=== PATIENT | male | born 2005 | race African-American/Black ===

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

== ENCOUNTER 2024-01-01 21:12 | Emergency (ER) | payer OTHER ==
[2024-01-01 21:26] VITALS: RESP 18; BMI 43.9
[2024-01-01] MEDS ORDERED: ACETAMINOPHEN INJECTION 100 ML IVPB ONE (22:02)
[2024-01-01] MEDS ORDERED: levETIRAcetam 500 MG/5 ML INJECTION VIAL IVPB ONE (22:02)
[2024-01-01 22:05] LABS: BASO % 0.5 % (0-2.0); EOS % 1.5 % (0-4.5); HEMATOCRIT 45.8 % (35.4-49); LYMPH % 17.8 % (8-40); MCH 26.1 pg (25.7-33.7); MCHC 32.7 g/dl (32.0-35.9); MEAN CELL VOLUME 79.8 fl (80-96); MEAN PLT VOLUME 7.8 fl (7.5-11.1); MONO % 5.2 % (3.8-10.2); PLATELET COUNT 189 10^3/uL (134-434); RBC 5.74 M/mm3 (4.00-5.60); RDW 15.3 % (11.9-15.9); WHITE BLOOD COUNT 7.1 K/mm3 (4.0-10.0)
[2024-01-01] MEDS: levETIRAcetam 500 MG/5 ML INJECTION VIAL IVPB ONE (22:05)
[2024-01-01] MEDS: SODIUM CHLORIDE 0.9% 500 ML INFUS.BAG IV ONE (22:11)
[2024-01-01] MEDS: ACETAMINOPHEN 1000 MG/100 ML BAG IVPB ONE (22:11)
[2024-01-01 22:22] LABS: POTASSIUM 3.7 mmol/L (3.5-5.1)
[2024-01-01 22:24] LABS: CALCIUM 9.2 mg/dL (8.5-10.1)
[2024-01-01 22:25] LABS: BLOOD UREA NITROGEN 10.5 mg/dL (7-18)
[2024-01-01 22:28] LABS: CREATININE 1.3 mg/dL (0.55-1.3)
[2024-01-01 22:30] LABS: BILIRUBIN,TOTAL 0.7 mg/dL (0.2-1); TOT PROT 7.1 g/dl (6.4-8.2)
[2024-01-01 23:07] VITALS: BP 124/76; PULSE 84; TEMP 99
== END 2024-01-01 23:48 | disposition home or self-care (01) ==
LOC: JER 21:12
PROC: 3E033NZ Introduction of Analgesics, Hypnotics, Sedatives into Peripheral Vein, Percutaneous Approach (ICD-10-PCS; principal; 2024-01-01)
PROC: 3E033GC Introduction of Other Therapeutic Substance into Peripheral Vein, Percutaneous Approach (ICD-10-PCS; 2024-01-01)
DX: G40.909 Epilepsy, unspecified, not intractable, without status epilepticus (principal); Z20.822 Contact with and (suspected) exposure to COVID-19
CPT/HCPCS: 0241U-QW; 36415; 73030-TC-RT-FY; 80053; 80177; 85025; 99284-25; J0131

== ENCOUNTER 2024-10-22 16:46 | Emergency (ER) | payer OTHER ==
[2024-10-22] MEDS ORDERED: levETIRAcetam 500 MG/5 ML INJECTION VIAL IVPB ONE ×2 (17:09→18:10)
[2024-10-22 17:10] VITALS: TEMP 98.1; BMI 41.8
[2024-10-22] MEDS ORDERED: LIDOCAINE HCL 1%, 10 MG/ML (20ML VIAL) ONE (17:16)
[2024-10-22 17:26] LABS: HEMATOCRIT 47.3 % (35.4-49); HEMOGLOBIN 15.4 GM/dL (11.7-16.9); MCH 25.9 pg (25.7-33.7); MCHC 32.6 g/dl (32.0-35.9); MEAN CELL VOLUME 79.7 fl (80-96); MEAN PLT VOLUME 7.9 fl (7.5-11.1); PLATELET COUNT 179 10^3/uL (134-434); RBC 5.94 M/mm3 (4.00-5.60); RDW 15.3 % (11.9-15.9)
[2024-10-22 17:30] LABS: INR 1.04 (0.83-1.09); PROTHROMBIN TIME (PATIENT) 11.7 SEC (9.7-13.0)
[2024-10-22 17:33] LABS: ACTIVATED PTT 29.6 SECONDS (25.2-36.5)
[2024-10-22] MEDS: LIDOCAINE HCL 1%, 10 MG/ML (50 mL VIAL) IO ONE (17:33)
[2024-10-22 17:43] LABS: CALCIUM 9.5 mg/dL (8.5-10.1)
[2024-10-22 17:44] LABS: BLOOD UREA NITROGEN 9.3 mg/dL (7-18)
[2024-10-22 17:47] LABS: CREATININE 1.4 mg/dL (0.55-1.3)
[2024-10-22 17:48] LABS: BILIRUBIN,TOTAL 0.9 mg/dL (0.2-1)
[2024-10-22] MEDS: levETIRAcetam 500 MG/5 ML INJECTION VIAL IVPB ONE ×2 (18:21→18:48)
[2024-10-22] MEDS ORDERED: KETAMINE HCL 200 MG/20 ML VIAL ONE (18:27)
[2024-10-22] MEDS ORDERED: PROPOFOL 20 ML ONE (18:27)
[2024-10-22] MEDS: KETAMINE HCL 200 MG/20 ML VIAL IVPUSH ONE (18:30)
[2024-10-22] MEDS: PROPOFOL 200 MG/20 ML VIAL IVPUSH ONE (18:30)
[2024-10-22] MEDS: SODIUM CHLORIDE 0.9% 500 ML INFUS.BAG IV ONE (18:48)
[2024-10-22 19:01] VITALS: RESP 25
[2024-10-22 19:22] VITALS: BP 144/100; PULSE 90
== END 2024-10-22 21:06 | disposition home or self-care (01) ==
LOC: JER 16:46
PROC: 0RSKXZZ Reposition Left Shoulder Joint, External Approach (ICD-10-PCS; principal; 2024-10-22)
PROC: 3E033GC Introduction of Other Therapeutic Substance into Peripheral Vein, Percutaneous Approach (ICD-10-PCS; 2024-10-22)
PROC: 3E033GC Introduction of Other Therapeutic Substance into Peripheral Vein, Percutaneous Approach (ICD-10-PCS; 2024-10-22)
PROC: 3E033GC Introduction of Other Therapeutic Substance into Peripheral Vein, Percutaneous Approach (ICD-10-PCS; 2024-10-22)
DX: S43.005A Unspecified dislocation of left shoulder joint, initial encounter (principal); G40.909 Epilepsy, unspecified, not intractable, without status epilepticus; W06.XXXA Fall from bed, initial encounter
CPT/HCPCS: 36415; 70450-TC; 71045-TC-FY; 72125-TC; 73030-TC-LT-FY; 73090-TC-LT-FY; 80053; 80177; 85027; 85610; 85730; 86850; 86900; 86901; 99285-25